=== PATIENT | female | born 1965 | race Caucasian/White ===

== ENCOUNTER 2018-01-21 08:36 | Day surgery (SDC) | payer BC ==
[~2018-01-21 08:36] MED LIST: ACETAMINOPHEN 1,000 MG/100 ML BTL IV ONE
[2018-01-21] MEDS ORDERED: ONDANSETRON HCL IV 4 MG/2 ML VIAL IVP ONE (08:37)
[2018-01-21] MEDS ORDERED: MIDAZOLAM HCL 2MG/2ML VIAL IV ONE (08:37)
[2018-01-21] MEDS ORDERED: SEVOFLURANE 250 ML INH ONE (08:37)
[2018-01-21] MEDS ORDERED: FENTANYL PF 100MCG/2ML VIAL IV ONE (08:37)
[2018-01-21] MEDS ORDERED: HYDROCODONE/APAP 7.5/325MG TABLET PO ONE (08:37)
[2018-01-21] MEDS ORDERED: LIDOCAINE 2% MDV (20MG/ML) 20ML VIAL IV ONE (08:37)
[2018-01-21] MEDS ORDERED: KETOROLAC 30 MG/ML VIAL IVP ONE (08:37)
[2018-01-21] MEDS ORDERED: PROPOFOL 10 MG/ML VIAL IV ONE (08:37)
[2018-01-21] MEDS ORDERED: BUPIVACAINE 0.5% W/EPI MPF 30 ML VIAL IVP ONE (08:37)
--- NOTE | 2018-01-25 07:30 | Operative Note ---
DATE OF SURGERY: 01/21/2018 Surgeon: Fili Correa DO Referring physician: Eber Lama MD PREOPERATIVE DIAGNOSES: 1. Torn medial meniscus of the right knee. 2. Chondromalacia of the right knee. POSTOPERATIVE DIAGNOSES: 1. Torn medial meniscus of the right knee. 2. 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 3. Chondromalacia of the trochlea, patella, and medial femoral condyle right knee. OPERATION: 1. Arthroscopic partial medial meniscectomy right knee. 2. Arthroscopic resection medial mid patella plica right knee. 3. Arthroscopic chondroplasty medial femoral condyle, trochlea, and patella right knee. Anesthesia: General. PROCEDURE: This 52-year-old female was taken to the operating room and placed in the supine position on the operating room table. A general anesthetic was administered and the right lower extremity was elevated, exsanguinated, and the tourniquet inflated to 300 mmHg. Arthroscopic knee llanes applied, the right knee prepped with Hibiclens and draped in the usual sterile fashion. An inferior lateral portal was established with a 4 mm arthroscope and initial evaluation of the joint demonstrated normal appearance of the suprapatellar pouch, but the patient did have a medial mid patellar plica as well as significant degenerative changes of the patella. Through an inter-medial portal we probed the patella and found grade 3 changes noted, affecting the medial and lateral facet, as well as the median ridge, with loose fragment of articular cartilage. This was smoothed with the rotating shaver. The trochlea also demonstrated advanced degenerative disease with severe grade 3 changes. This was noted mostly on the medial side of the trochlea, but some on the lateral side, but loose fragments of articular cartilage were present here and chondroplasty was performed. This involved the lesion approximately 3 cm or so in diameter. This was then reprobed and confirmed to be stable. The medial compartment was entered, and grade 2 chondromalacia of the medial femoral condyle involving the entire weightbearing surface was also noted, but this was not severe, grade 2 changes, and chondroplasty was performed. The patient also demonstrated a complex tear of the posterior horn of the medial meniscus with the apex at about the 1 to 1:30 position. We resected back to the apex of the tear, and then tapered the smooth contoured edge to the posterior horn, all the way around to about the 3 o'clock position. This was then reprobed and confirmed to be stable. We then directed our attention to the intercondylar notch, which was seen to be normal. The lateral compartment was entered and no articular cartilage or meniscal lesions were identified in the lateral compartment. The wound was copiously irrigated and suctioned. The instruments were removed. The portals infiltrated with 0.25% Marcaine with epinephrine. Sterile dressings applied. The tourniquet and knee llanes released. The patient taken to the recovery room in satisfactory condition. GROSS PATHOLOGY: This patient demonstrated grade 3 chondromalacia of the patellofemoral articulation with grade 2 changes noted in the medial femoral condyle, in addition, a complex tear of the medial meniscus was present and the medial mid patellar plica was also identified and this was resected with the rotating shaver, not mentioned in the body of the dictation. ZAC
== END 2018-01-21 11:15 | disposition home or self-care (01) ==
LOC: SUR 08:36
PROVIDERS: ATTEND Orthopaedic Surgery
DX: M22.41 Chondromalacia patellae, right knee (principal); M94.261 Chondromalacia, right knee; F41.8 Other specified anxiety disorders
CPT/HCPCS: 29881; 29875; 01400; J1885; J2405; J3010